=== PATIENT | male | born 1975 | race Caucasian/White ===

== ENCOUNTER 2019-05-22 20:02 | Emergency (ER) | payer SELFPAY ==
[~2019-05-22] VITALS: Ht 172.7 cm; Wt 63.5 kg
[~2019-05-22 20:02] MED LIST: AMPICILLIN500 MG PO; BACTRIM DS 8001 TA1 PO; BIO-STATIN1 POW; KEFLEX500 MG PO; Miralax Powder255 GM PO; NKHM; PERCOCET 325 MG1 TA5 PO; SEPTRA DS 800 M1 TAB PO; TRAMADOL HCL50 MG PO; VICODIN 5/500 505 MG PO; VICODIN 500 MG-1 TAB PO; ZYRTEC10 MG PO
[2019-05-22 20:08] VITALS: BP 118/90
[2019-05-22] MEDS ORDERED: ROBAXIN-750750 MG PO (21:30)
== END 2019-05-22 21:36 | disposition home or self-care (01) ==
LOC: ED 20:02
DX: S20.212A Contusion of left front wall of thorax, initial encounter (principal); Z88.0 Allergy status to penicillin; Z88.6 Allergy status to analgesic agent; Z79.2 Long term (current) use of antibiotics; W10.9XXA Fall (on) (from) unspecified stairs and steps, initial encounter; Y93.89 Activity, other specified; Y92.098 Other place in other non-institutional residence as the place of occurrence of the external cause; Y99.8 Other external cause status

== ENCOUNTER 2019-07-29 22:44 | Emergency (ER) | payer SELFPAY ==
[~2019-07-29] VITALS: Ht 172.7 cm; Wt 65.8 kg
[~2019-07-29 22:44] MED LIST changes: +ROBAXIN-750750 MG PO
[2019-07-29 22:48] VITALS: BP 127/82
[2019-07-30] MEDS ORDERED: TRAMADOL HCL50 MG PO (00:45)
== END 2019-07-30 01:44 | disposition home or self-care (01) ==
LOC: ED 22:44
DX: S00.93XA Contusion of unspecified part of head, initial encounter (principal); S20.211A Contusion of right front wall of thorax, initial encounter; F10.129 Alcohol abuse with intoxication, unspecified; F17.200 Nicotine dependence, unspecified, uncomplicated; Z88.5 Allergy status to narcotic agent; Z88.0 Allergy status to penicillin; Z79.899 Other long term (current) drug therapy; Y08.89XA Assault by other specified means, initial encounter; Y93.89 Activity, other specified; Y92.098 Other place in other non-institutional residence as the place of occurrence of the external cause; Y90.9 Presence of alcohol in blood, level not specified

== ENCOUNTER 2019-12-28 06:54 | Emergency (ER) | payer SELFPAY ==
[~2019-12-28] VITALS: Ht 172.7 cm; Wt 61.2 kg
[2019-12-28 07:00] VITALS: BP 133/84
[2019-12-28] MEDS ORDERED: CLINDAMYCIN HC300 MG PO (07:51)
[2019-12-28] MEDS ORDERED: TYLENOL325 M1 PO (07:52)
[2019-12-28] MEDS ORDERED: NAPROXEN250 MG PO (07:52)
== END 2019-12-28 08:58 | disposition home or self-care (01) ==
LOC: ED 06:54
DX: S50.862A Insect bite (nonvenomous) of left forearm, initial encounter (principal); Z88.5 Allergy status to narcotic agent; Z88.0 Allergy status to penicillin; W57.XXXA Bitten or stung by nonvenomous insect and other nonvenomous arthropods, initial encounter; Y93.89 Activity, other specified; Y92.89 Other specified places as the place of occurrence of the external cause; Y99.8 Other external cause status